=== PATIENT | male | born 1995 | race Caucasian/White ===

== ENCOUNTER 2017-08-22 20:10 | Emergency (ER) | payer OTHER ==
[~2017-08-22] VITALS: Ht 170.2 cm; Wt 72.8 kg
[2017-08-22 20:21] VITALS: Ht 170.2 cm; Wt 72.8 kg
[2017-08-22] MEDS ORDERED: IBUPROFEN 600 MG TAB PO STA (20:53)
[2017-08-22 21:01] LABS: URINE APPEARANCE CLEAR (CLEAR); URINE BILIRUBIN NEG (NEG); URINE COLOR YELLOW; URINE NITRITE NEG (NEG); URINE PH 6.5 (4.5-7.5); URINE SPECIFIC GRAVITY 1.012 (1.000-1.030); UROBILINOGEN NEG (NEG)
[2017-08-22 21:03] LABS: MANUAL MICROSCOPIC REQUIRED? NO; REVIEW REQ? NO
[2017-08-22] MEDS ORDERED: OMEG10007 PO (21:19)
[2017-08-22] MEDS ORDERED: MULT-506 PO (21:19)
--- NOTE | 2017-08-22 21:28 | DIAGNOSTIC IMAGING REPORT ---
CHEST 2 VIEWS ROUTINE CLINICAL HISTORY: Fever. COMPARISON STUDY: No previous studies for comparison. FINDINGS: Lung volumes are normal. No pneumothorax or pleural effusion is present. No consolidation is identified. Cardiomediastinal silhouette is normal. Pulmonary vascularity is normal. IMPRESSION: No acute cardiopulmonary findings. Electronically signed by: Alcides Hanna M.D. 08/22/2017 9:26 PM Dictated Date/Time: 08/22/2017 9:26 PM
[2017-08-22] MEDS ORDERED: AZITHROMYCIN 250 MG TAB PO STA (21:39)
[2017-08-22] MEDS ORDERED: AZIT500T26 PO (21:40)
--- NOTE | 2017-08-22 21:43 | EMERGENCY ROOM VISIT NOTE ---
History Report prepared by Brielle: Suleiman Mills Under the Supervision of: Dr. Damon Franco D.O. First contact with patient: 20:39 Chief Complaint: FEVER Stated Complaint: 104 FEVER, ACHES,PAINS,LIGHTHEADED,SORE THROAT History of Present Illness The patient is a 22 year old male who presents to the Emergency Room with complaints of a worsening fever starting earlier today. The patient states that he went to [facility] today, and he had a fever and had a negative strep test. He states that then later after studying he had a fever of 103, and then 15 minutes later his fever went to 103.9. He additionally states that he had the chills, and he was having numbness in his fingertips while typing. The patient additionally states that he has sore throat, swollen glands, headache, aches in his side and back, and a cough. He notes that he has not taken any medication for the fever, and he has no sick contacts. He denies any past medical history or surgical history. He states that today he took ibuprofen around 1330. He denies any alcohol or tobacco use. Source of History: patient Onset: earlier today Position: other (global) Quality: other (fever) Timing: worsening Associated Symptoms: + chills, + headache, + sorethroat, + cough, + numbness Review of Systems See HPI for pertinent positives & negatives. A total of 10 systems reviewed and were otherwise negative. Past Medical & Surgical Medical Problems: (1) No Known Active Medical Problems Family History Patient reports no known family medical history. Social History Smoking Status: Never Smoker Marital Status: single Housing Status: lives with roommate Occupation Status: [employer] Current/Historical Medications Scheduled Azithromycin (Zithromax), 500 MG PO DAILY Fish Oil (Kinsey-3), 1 CAP PO DAILY Multivitamin (Multivitamin), 1 TAB PO DAILY Allergies Coded Allergies: Acellular Pertussis (Unverified Allergy, Unknown, UNKNOWN, 08/22/17) FROM "WHOOPING COUGH VACCINE" -PT Aluminum Phosphate (Unverified Allergy, Unknown, UNKNOWN, 08/22/17) FROM "WHOOPING COUGH VACCINE" -PT Diphtheria Toxoid (Unverified Allergy, Unknown, UNKNOWN, 08/22/17) FROM "WHOOPING COUGH VACCINE" -PT Phenoxyethanol (Unverified Allergy, Unknown, UNKNOWN, 08/22/17) FROM "WHOOPING COUGH VACCINE" -PT Tetanus Toxoid (Unverified Allergy, Unknown, UNKNOWN, 08/22/17) FROM "WHOOPING COUGH VACCINE" -PT Physical Exam Vital Signs Date Time Temp Pulse Resp B/P (MAP) Pulse Ox O2 Delivery O2 Flow Rate FiO2 08/22/17 21:47 39.1 110 20 130/66 98 Room Air 08/22/17 20:21 39.5 121 20 134/87 98 Room Air Physical Exam GENERAL: Patient is awake, alert, and in no acute distress. Patient is resting comfortably and showing no signs of anxiety EYES: The conjunctivae are clear. The pupils are round and reactive. EARS, NOSE, MOUTH AND THROAT: Mucous membranes are moist. Posterior oropharynx was clear and erythematous with mild swelling noted. Scant exudate noted on the left tonsil . No uvular deviation or peritonsillar mass noted. NECK: The neck is nontender and supple. RESPIRATORY: Normal respiratory effort is noted there is no evidence of wheezing rhonchi or rales CARDIOVASCULAR: Regular rate and rhythm noted there no murmurs rubs or gallops normal S1 normal S2 GASTROINTESTINAL: The abdomen is soft. Bowel sounds are present in all quadrants. Abdomen is nontender MUSCULOSKELETAL/EXTREMITIES: There is no evidence of gross deformity full range of motion is noted in the hips and shoulders SKIN: There is no obvious evidence of any rash. There are no petechiae, pallor or cyanosis noted. NEUROLOGIC: Patient is awake alert and oriented x3 strength is symmetric patellar reflexes are 2+ bilaterally Medical Decision & Procedures ER Provider Diagnostic Interpretation: Radiology results as stated below per my review and radiologist interpretation: CHEST 2 VIEWS ROUTINE CLINICAL HISTORY: Fever. COMPARISON STUDY: No previous studies for comparison. FINDINGS: Lung volumes are normal. No pneumothorax or pleural effusion is present. No consolidation is identified. Cardiomediastinal silhouette is normal. Pulmonary vascularity is normal. IMPRESSION: No acute cardiopulmonary findings. Electronically signed by: Alcides Hanna M.D. 08/22/2017 9:26 PM Dictated Date/Time: 08/22/2017 9:26 PM Laboratory Results Test 08/22/17 20:53 08/22/17 20:58 Urine Color YELLOW Urine Appearance CLEAR (CLEAR) Urine pH 6.5 (4.5-7.5) Urine Specific [place] 1.012 (1.000-1.030) Urine Protein NEG (NEG) Urine Glucose (UA) NEG (NEG) Urine Ketones NEG (NEG) Urine Occult Blood NEG (NEG) Urine Nitrite NEG (NEG) Urine Bilirubin NEG (NEG) Urine Urobilinogen NEG (NEG) Urine Leukocyte Esterase NEG (NEG) Influenza Type A Antigen Neg for Influ A (NEG) Influenza Type B Antigen Neg for Influ B (NEG) Laboratory results per my review. Medications Administered Medications (Trade) Dose Ordered Sig/Rl Route Start Time Stop Time Status Last Admin Dose Admin Ibuprofen (Motrin Tab) 600 mg NOW STAT PO 08/22/17 20:53 08/22/17 20:54 DC 08/22/17 21:01 600 MG Azithromycin (Zithromax Tab) 500 mg NOW STAT PO 08/22/17 21:39 08/22/17 21:40 DC 08/22/17 21:46 500 MG Prednisone (PredniSONE TAB) 60 mg NOW STAT PO 08/22/17 21:39 08/22/17 21:40 DC 08/22/17 21:45 60 MG ED Course 2038: The patient was evaluated in room C3. A complete history and physical examination were performed. 2052: Ibuprofen 600mg PO 2138: Prednisone 60mg PO, Azithromycin 500mg PO 2209: Upon reevaluation, the patient is doing well. I discussed the results and treatment plan with him. He verbalized agreement of the treatment plan. He was discharged home. Medical Decision Differential diagnosis: Etiologies such as viral syndrome, otitis, pharyngitis, pneumonia, influenza, meningitis, urinary tract infection, sepsis, bacteremia, as well as others were entertained. Nursing notes reviewed. The patient is a 22-year-old male who presented to the emergency department for an evaluation of sore throat. The patient appeared to have tonsillitis on physical exam. He did not have trismus or other signs of peritonsillar abscess. He was started on an antibiotic in the emergency department. The patient states that he had a negative rapid strep screen done at [facility]. I suspect the backup culture will show some type of strep infection. He was encouraged to continue all medications as prescribed and drink plenty clear liquids. He was also encouraged to follow-up with [facility] this week for reevaluation and continue using Motrin and Tylenol for pain. Otherwise she was encouraged to return to the emergency Department immediately if symptoms change worsen or the need arises. Medication Reconcilliation Current Medication List: was personally reviewed by me Blood Pressure Screening Patient's blood pressure: Normal blood pressure Impression Primary Impression: Tonsillitis Additional Impression: Fever Scribe Attestation The scribe's documentation has been prepared under my direction and personally reviewed by me in its entirety. I confirm that the note above accurately reflects all work, treatment, procedures, and medical decision making performed by me. Departure Information Dispostion Home / Self-Care Prescriptions Azithromycin (Zithromax) 500 Mg Tab 500 MG PO DAILY, #4 TAB Prov: Damon Franco, DO 08/22/17 Forms HOME CARE DOCUMENTATION FORM, IMPORTANT VISIT INFORMATION, School Instructions, Work Instructions Patient Instructions My [facility] Additional Instructions Drink plenty clear liquids. Rest and avoid any strenuous activity. Follow-up with [facility] for reevaluation. Continue using Motrin and Tylenol as directed for pain and fever. Problem Qualifiers
[2017-08-22 21:47] VITALS: BP 130/66; PULSE 110; TEMP 39.1; O2SAT 98
== END 2017-08-22 22:05 | disposition home or self-care (01) ==
LOC: C.EDB 20:12 → C.EDC 22:05
DX: J03.90 Acute tonsillitis, unspecified (principal); Z79.899 Other long term (current) drug therapy; Z88.8 Allergy status to other drugs, medicaments and biological substances